=== PATIENT | male | born 1990 | race Caucasian/White ===

== ENCOUNTER 2017-07-03 15:38 | Emergency (ER) | payer SELFPAY ==
[2017-07-03] MEDS ORDERED: Ketorolac 60 MG/2 ML SDV IM ONE (16:12)
--- NOTE | 2017-07-03 16:21 | EDM.PDOC ---
ED HPI GENERAL MEDICAL PROBLEM - General Chief Complaint: General Stated Complaint: GROIN PAIN Time Seen by Provider: 07/03/17 15:51 Source of Information: Reports: Patient History Limitations: Reports: No Limitations - History of Present Illness INITIAL COMMENTS - FREE TEXT/NARRATIVE: HISTORY AND PHYSICAL: History of present illness: Patient is a 27-year-old male who presents to the emergency room with complaints of right groin pain that radiates down the anterior aspect of his leg. States earlier today he was lifting up a heavy box and had pain that started in his groin. As the day has progressed the pain is now moving shooting down the anterior aspect of his leg. States approximately one year ago he did have a similar symptom in his right groin which resolved on its own after a few days. When asked questions about urination/urinary symptoms, the patient does state that he has had some dysuria and difficulty starting history and over the weekend. He denies any concerns of STDs as he is in a monogamous relationship for the past several years. Denies any testicular pain, erythema, lesions or sores. Denies any penile drainage, fever or chills. Denies any change in his bowel habits. Review of systems: As per history of present illness and below otherwise all systems reviewed and negative. Past medical history: As per history of present illness and as reviewed below otherwise noncontributory. Surgical history: As per history of present illness and as reviewed below otherwise noncontributory. Social history: No reported history of drug or alcohol abuse. Family history: As per history of present illness and as reviewed below otherwise noncontributory. Physical exam: HEENT: Atraumatic, normocephalic, pupils reactive, negative for conjunctival pallor or scleral icterus, mucous membranes moist, throat clear, neck supple, nontender, trachea midline. Lungs: Clear to auscultation, breath sounds equal bilaterally, chest nontender. Heart: S1S2, regular, negative for clicks, rubs, or JVD. Abdomen: Soft, nondistended, nontender. Negative for masses or hepatosplenomegaly. Negative for costovertebral tenderness. Pelvis: Stable nontender. Genitourinary: This was done with a solvent process extractor operator. The external genitalia is within normal limits. There are no open sores or lesions. The testicles have no erythema, and are not tender to palpation. The groin is free of any bulging, does not appear to have any hernias. Nontender to palpation. The inguinal canal was assessed with consent, not appreciate any hernias. Rectal: Deferred. Extremities: Atraumatic, negative for cords or calf pain. Neurovascular unremarkable. Neuro: Awake, alert, oriented. Cranial nerves II through XII unremarkable. Cerebellum unremarkable. Motor and sensory unremarkable throughout. Exam nonfocal. I did offer a ultrasound of the right groin. He states that he believes that it is a muscular strain. I agree with him and do not believe there is a hernia after my assessment. Symptoms are consistent with a muscular/groin strain. Will prescribe the patient diclofenac 1 tablet twice a day as needed please take with food. She wanted the patient to follow-up with his primary caregiver in the next couple days Diagnostics: [employer]: Toradol Impression: Groin strain Plan: 1. Your physical exam and urinalysis are unremarkable. At this time I believe that her symptoms are consistent with a groin/muscular strain. Please take the diclofenac but has been prescribed for you. He can take 1 tablet up to twice daily as needed for pain. This is a nonnarcotic, it is an anti-inflammatory. Said to not take any additional NSAIDs such as Aleve or ibuprofen. He may want to take this medication with food. Gentle heat and stretching to the area. 2. Follow-up with your primary caregiver in the next 1-2 days. Return to the ED as needed and as discussed. Definitive disposition and diagnosis as appropriate pending reevaluation and review of above. Onset: Today Duration: Hour(s): Location: Reports: Abdomen Right Groin Pain Score (Numeric/FACES): 6 - Related Data Allergies Allergy/AdvReac Type Severity Reaction Status Date / Time No Known Allergies Allergy Verified 12/18/13 15:06 Home Meds: Home Meds . [No Known Home Meds] 07/03/17 [History] Past Medical History - Past Health History Medical/Surgical History: Denies Medical/Surgical History Social & Family History - Family History Family Medical History: Noncontributory - Tobacco Use Smoking Status *Q: Never Smoker Years of Tobacco use: 3 - Caffeine Use Caffeine Use: Reports: Tea - Alcohol Use Days Per Week of Alcohol Use: 1 Number of Drinks Per Day: 3 Total Drinks Per Week: 3 - Recreational Drug Use Recreational Drug Use: No ED ROS GENERAL - Review of Systems Review Of Systems: ROS reveals no pertinent complaints other than HPI. ED EXAM, GENERAL - Physical Exam Exam: See Below (See dictation) Course - Vital Signs Last Recorded V/S: Last Vital Signs Temp 98.1 F 07/03/17 15:54 Pulse 78 07/03/17 15:54 Resp 14 07/03/17 15:54 BP 132/71 07/03/17 15:54 Pulse Ox 98 07/03/17 15:54 - Orders/Labs/Meds Orders: Active Orders 24 hr Category Date Time Status Orphenadrine [Norflex] Med 07/03/17 16:15 Active 60 mg IM Q12H Medication Orders Orphenadrine Citrate (Norflex) 60 mg IM Q12H MIKAYLA Last Admin: 07/03/17 16:35 Dose: 60 mg Labs: Laboratory Tests 07/03/17 Range/Units 10:29 Urine Color YELLOW Urine Appearance CLEAR Urine pH 6.5 (5.0-8.0) Ur Specific Alva 1.020 (1.001-1.035) Urine Protein NEGATIVE (NEGATIVE) mg/dL Urine Glucose (UA) NEGATIVE (NEGATIVE) mg/dL Urine Ketones NEGATIVE (NEGATIVE) mg/dL Urine Occult Blood NEGATIVE (NEGATIVE) Urine Nitrite NEGATIVE (NEGATIVE) Urine Bilirubin NEGATIVE (NEGATIVE) Urine Urobilinogen 0.2 (<2.0) EU/dL Ur Leukocyte Esterase NEGATIVE (NEGATIVE) Urine RBC NONE SEEN (0-2/HPF) Urine WBC 0-1 (0-5/HPF) Ur Epithelial Cells RARE (NONE-FEW) Amorphous Sediment RARE (NEGATIVE) Urine Bacteria RARE (NEGATIVE) Meds: Medications Generic Name Dose Route Start Last Admin Trade Name Freq PRN Reason Stop Dose Admin Orphenadrine Citrate 60 mg 07/03/17 16:15 07/03/17 16:35 Norflex IM 60 mg Q12H MIKAYLA Administration Discontinued Medications Generic Name Dose Route Start Last Admin Trade Name Freq PRN Reason Stop Dose Admin Ketorolac Tromethamine 60 mg 07/03/17 16:12 07/03/17 16:34 Toradol IM 07/03/17 16:13 60 mg ONETIME ONE Administration Departure - Departure Time of Disposition: 17:32 Disposition: Home, Self-Care 01 Clinical Impression: Groin strain Qualifiers: Encounter type: initial encounter Laterality: right Qualified Code(s): S76.211A - Strain of adductor muscle, fascia and tendon of right thigh, initial encounter - Discharge Information Referrals: PCP,None [Primary Care Provider] - Forms: ED Department Discharge Additional Instructions: My general discharge The following information is given to patients seen in the emergency department who are being discharged to home. This information is to outline your options for follow-up care. We provide all patients seen in our emergency department with a follow-up referral. The need for follow-up, as well as the timing and circumstances, are variable depending upon the specifics of your emergency department visit. If you don't have a primary care physician on staff, we will provide you with a referral. We always advise you to contact your personal physician following an emergency department visit to inform them of the circumstance of the visit and for follow-up with them and/or the need for any referrals to a consulting specialist. The emergency department will also refer you to a specialist when appropriate. This referral assures that you have the opportunity for follow-up care with a specialist. All of these measure are taken in an effort to provide you with optimal care, which includes your follow-up. Under all circumstances we always encourage you to contact your private physician who remains a resource for coordinating your care. When calling for follow-up care, please make the office aware that this follow-up is from your recent emergency room visit. If for any reason you are refused follow-up, please contact the [facility] Emergency Department at and asked to speak to the emergency department charge nurse. [facility] [address] [place] [id number] 1. Your physical exam and urinalysis are unremarkable. At this time I believe that her symptoms are consistent with a groin/muscular strain. Please take the diclofenac but has been prescribed for you. You can take 1 tablet up to twice daily as needed for pain. This is a non-narcotic, it is an anti-inflammatory. So please do not take any additional NSAIDs such as Aleve or ibuprofen. You may want to take this medication with food. Gentle heat and stretching to the area. 2. Follow-up with your primary caregiver in the next 1-2 days. Return to the ED as needed and as discussed. - My Orders Last 24 Hours: My Active Orders 07/03/17 16:15 Orphenadrine [Norflex] 60 mg IM Q12H - Assessment/Plan Last 24 Hours: My Active Orders 07/03/17 16:15 Orphenadrine [Norflex] 60 mg IM Q12H
== END 2017-07-03 17:40 | disposition home or self-care (01) ==
LOC: MW.ED 15:38
DX: S39.011A Strain of muscle, fascia and tendon of abdomen, initial encounter (principal); X50.0XXA Overexertion from strenuous movement or load, initial encounter
CPT/HCPCS: 81001; 96372; 99283; J1885; J2360

== ENCOUNTER 2017-09-03 12:11 | Emergency (ER) | payer SELFPAY ==
--- NOTE | 2017-09-03 13:12 | EDM.PDOC ---
ED HPI GENERAL MEDICAL PROBLEM - General Chief Complaint: Genitourinary Problem Stated Complaint: LOWER BACK PAIN, TESTICAL PAIN Time Seen by Provider: 09/03/17 12:47 Source of Information: Reports: Patient History Limitations: Reports: No Limitations - History of Present Illness INITIAL COMMENTS - FREE TEXT/NARRATIVE: History of present illness: []Patient's been having bilateral lower back pain for a week and left kidney pain this morning at 8:00 started having left testicular pain. Patient pulled his right groin muscle 5 weeks ago but has healed well from this. Review of systems: As per history of present illness and below otherwise all systems reviewed and negative. Past medical history: As per history of present illness and as reviewed below otherwise noncontributory. Surgical history: As per history of present illness and as reviewed below otherwise noncontributory. Social history: No reported history of drug or alcohol abuse. Family history: As per history of present illness and as reviewed below otherwise noncontributory. Physical exam: General: Well developed, well nourished in NAD HEENT: Atraumatic, normocephalic, pupils reactive, negative for conjunctival pallor or scleral icterus, mucous membranes moist, throat clear, neck supple, nontender, trachea midline. Lungs: Clear to auscultation, breath sounds equal bilaterally, chest nontender. Heart: S1S2, regular, negative for clicks, rubs, or JVD. Abdomen: Soft, nondistended, nontender. Negative for masses or hepatosplenomegaly. Negative for costovertebral tenderness. Pelvis: Stable nontender. Genitourinary: Left testicle tender to palpation there is no edema or erythema lesions or masses noted Rectal: Deferred. Extremities: Atraumatic, negative for cords or calf pain. Neurovascular unremarkable. Neuro: Awake, alert, oriented. Cranial nerves II through XII unremarkable. Cerebellum unremarkable. Motor and sensory unremarkable throughout. Exam nonfocal. Diagnostics: []Ultrasound left testicle normal, urine shows no blood or infection Therapeutics: []Tramadol for pain Impression: []Left Testicular pain Plan: []Follow-up with urology Sasha for pain follow-up with PMD return if symptoms worsen Definitive disposition and diagnosis as appropriate pending reevaluation and review of above. Left Groin Pain Score (Numeric/FACES): 10 - Related Data Allergies Allergy/AdvReac Type Severity Reaction Status Date / Time No Known Allergies Allergy Verified 09/03/17 13:17 Home Meds: Home Meds traMADol HCl [Tramadol HCl] 50 mg PO Q6H PRN #16 tablet 09/03/17 [Rx] Past Medical History - Past Health History Medical/Surgical History: Denies Medical/Surgical History Social & Family History - Family History Family Medical History: Noncontributory - Tobacco Use Smoking Status *Q: Never Smoker Years of Tobacco use: 3 - Caffeine Use Caffeine Use: Reports: Tea - Alcohol Use Days Per Week of Alcohol Use: 1 Number of Drinks Per Day: 3 Total Drinks Per Week: 3 - Recreational Drug Use Recreational Drug Use: No ED ROS GENERAL - Review of Systems Review Of Systems: See Below (See history of present illness) ED EXAM, RENAL/ - Physical Exam Exam: See Below (See history of present illness) Course - Vital Signs Last Recorded V/S: Last Vital Signs Temp 98.7 F 09/03/17 13:15 Pulse 103 H 09/03/17 13:15 Resp 20 09/03/17 13:15 BP 133/88 09/03/17 13:15 Pulse Ox 98 09/03/17 13:15 - Orders/Labs/Meds Labs: Laboratory Tests 09/03/17 Range/Units 13:30 Urine Color YELLOW Urine Appearance CLEAR Urine pH 7.0 (5.0-8.0) Ur Specific [place]rie 1.020 (1.001-1.035) Urine Protein NEGATIVE (NEGATIVE) mg/dL Urine Glucose (UA) NEGATIVE (NEGATIVE) mg/dL Urine Ketones NEGATIVE (NEGATIVE) mg/dL Urine Occult Blood NEGATIVE (NEGATIVE) Urine Nitrite NEGATIVE (NEGATIVE) Urine Bilirubin NEGATIVE (NEGATIVE) Urine Urobilinogen 0.2 (<2.0) EU/dL Ur Leukocyte Esterase NEGATIVE (NEGATIVE) Urine RBC 0-1 (0-2/HPF) Urine WBC 0-1 (0-5/HPF) Ur Epithelial Cells RARE (NONE-FEW) Amorphous Sediment LIGHT (NEGATIVE) Urine Bacteria RARE (NEGATIVE) Meds: Medications Discontinued Medications Generic Name Dose Route Start Last Admin Trade Name Freq PRN Reason Stop Dose Admin Ketorolac Tromethamine 60 mg 09/03/17 14:13 09/03/17 14:33 Toradol IM 09/03/17 14:14 60 mg ONETIME ONE Administration Departure - Departure Time of Disposition: 15:44 Disposition: Home, Self-Care 01 Condition: Good Clinical Impression: Testicular pain, left - Discharge Information Prescriptions: traMADol HCl [Tramadol HCl] 50 mg PO Q6H PRN #16 tablet PRN Reason: Pain Referrals: PCP,None [Primary Care Provider] - Forms: ED Department Discharge Additional Instructions: The following information is given to patients seen in the emergency department who are being discharged to home. This information is to outline your options for follow-up care. We provide all patients seen in our emergency department with a follow-up referral. The need for follow-up, as well as the timing and circumstances, are variable depending upon the specifics of your emergency department visit. If you don't have a primary care physician on staff, we will provide you with a referral. We always advise you to contact your personal physician following an emergency department visit to inform them of the circumstance of the visit and for follow-up with them and/or the need for any referrals to a consulting specialist. The emergency department will also refer you to a specialist when appropriate. This referral assures that you have the opportunity for follow-up care with a specialist. All of these measure are taken in an effort to provide you with optimal care, which includes your follow-up. Under all circumstances we always encourage you to contact your private physician who remains a resource for coordinating your care. When calling for follow-up care, please make the office aware that this follow-up is from your recent emergency room visit. If for any reason you are refused follow-up, please contact the [facility] Emergency Department at and asked to speak to the emergency department charge nurse. Motrin or Tylenol For pain follow-up with regular physician or urology. [facility] [address] [place] [id number] [facility] - Urology [address] [place] [id number]
[2017-09-03] MEDS ORDERED: Ketorolac 60 MG/2 ML SDV IM ONE (14:13)
--- NOTE | 2017-09-03 15:19 | US ---
EXAMINATION: Scrotal duplex ultrasound HISTORY: Pain COMPARISON: None TECHNIQUE: Grayscale, color Doppler, and spectral Doppler imaging obtained of the scrotum FINDINGS: Both the left and right testicles are normal in contour, and echogenicity, and size demonst rating normal color and spectral Doppler flow. No testicular masses. The epididymides appear normal. No scrotal wall thickening. No significant hydrocele or varicocele. IMPRESSION: Grossly unremarkable scrotal duplex ultrasound.
== END 2017-09-03 16:02 | disposition home or self-care (01) ==
LOC: MW.ED 12:11
DX: N50.812 Left testicular pain (principal); Z72.0 Tobacco use
CPT/HCPCS: 76870; 81001; 93976; 96372; 99284; J1885; 99283